=== PATIENT | male | born 1975 | race Caucasian/White ===

== ENCOUNTER 2019-01-12 05:30 | Inpatient (IN) | payer MEDICAID ==
[~2019-01-12 05:30] MED LIST: NITROGLYCERIN 50 MG/D5W (PMX) 0 ML
[2019-01-12] MEDS: HEPARIN 25000 UNITS/250 ML 250 ML IV (05:45)
[2019-01-12] MEDS: HEPARIN 1000 UNITS/ML 10 ML INJ IV (05:45)
[2019-01-12] MEDS: ASPIRIN 325 MG TAB PO (05:47)
[2019-01-12] MEDS: morphine 4 MG/ML VIAL IV (05:47)
[2019-01-12] MEDS: ONDANSETRON 4 MG INJ IV (05:48)
[2019-01-12 05:51] LABS: ADD MAN DIFF? NO
[2019-01-12 05:54] LABS: BASOPHIL # 0.1 10^3/ul (0.0-0.1); BASOPHILS % 0.8 % (0.0-2.0); EOSINOPHILS # 0.2 10^3/ul (0.0-0.5); EOSINOPHILS % 1.3 % (0.0-7.0); HEMATOCRIT 42.3 % (42.0-52.0); HEMOGLOBIN 15.1 g/dl (14.0-18.0); LYMPHOCYTES # 2.7 10^3/ul (0.8-2.9); MEAN CORPUSCULAR HEMOGLOBIN 32.7 pg (29.0-33.0); MEAN CORPUSCULAR HGB CONC 35.7 g/dl (32.0-37.0); MEAN CORPUSCULAR VOLUME 91.6 fl (82.0-101.0); MEAN PLATELET VOLUME 10.4 fl (7.4-10.4); MONOCYTES % 7.9 % (0.0-11.0); NEUTROPHIL # 8.4 10^3/ul (1.6-7.5); NEUTROPHILS % 67.8 % (39.0-77.0); PLATELET COUNT 240 10^3/UL (140-415); RED BLOOD COUNT 4.62 10^6/ul (4.70-6.10); RED CELL DISTRIBUTION WIDTH 11.9 % (11.5-14.5)
[2019-01-12 05:54] LABS: WHITE BLOOD COUNT 12.3 10^3/ul (4.8-10.8)
[2019-01-12 06:07] LABS: ANION GAP 10 (5-13); BLOOD UREA NITROGEN 8 mg/dl (7-20); CALCIUM 9.2 mg/dl (8.4-10.2); CARBON DIOXIDE 27 mmol/L (21-31); CHLORIDE 99 mmol/L (97-110); CREATININE 0.58 mg/dl (0.61-1.24); Estimated GFR > 60 mL/min (>60); GLUCOSE 256 mg/dl (70-220); POTASSIUM 3.9 mmol/L (3.5-5.1); SODIUM 136 mmol/L (135-144)
[2019-01-12 06:10] LABS: INR 0.95; PROTIME 12.8 Sec (11.9-14.9)
[2019-01-12 06:11] LABS: PARTIAL THROMBOPLASTIN TIME 27.9 Sec (23.0-35.0)
[2019-01-12] MEDS ORDERED: IODIXANOL LOCM 100 ML BTL (06:19)
[2019-01-12] MEDS ORDERED: HEPARIN 1000 UNITS/ML 10 ML INJ (06:19)
[2019-01-12] MEDS ORDERED: LIDOCAINE 1% (MDV) 20 ML INJ (06:19)
[2019-01-12] MEDS ORDERED: MIDAZOLAM 1 MG/ML 2 ML INJ (06:20)
[2019-01-12] MEDS ORDERED: NITROGLYCERIN (IC) 100 MCG/ML INJ (06:20)
[2019-01-12] MEDS ORDERED: FENTAnyl 50 MCG/ML VIAL (06:20)
[2019-01-12] MEDS ORDERED: VERAPAMIL 5 MG INJ (06:20)
[2019-01-12 06:37] LABS: TROPONIN-I 0.952 ng/ml (0.000-0.120)
[2019-01-12] MEDS ORDERED: TICAGRELOR 90 MG TABLET (06:54)
[2019-01-12] MEDS ORDERED: niCARdipine 25 MG INJ (06:58)
[2019-01-12] MEDS ORDERED: BIVALIRUDIN 250MG /NS 50 ML 50 ML IVPB (07:02)
[2019-01-12] MEDS ORDERED: AL HYDROX/MG HYDROX/SIMETH 30 ML CUP PO (07:30)
[2019-01-12] MEDS ORDERED: ONDANSETRON 4 MG INJ IV (07:30)
[2019-01-12] MEDS: BIVALIRUDIN 250MG /NS 50 ML 50 ML IVPB (08:33)
[2019-01-12] MEDS: SOD CHLORIDE 0.9% 1,000 ML IV ×2 (08:45→16:00)
[2019-01-12 11:37] LABS: CREATINE KINASE 2188 IU/L (23-200)
[2019-01-12 11:43] LABS: CK INDEX 7.5
[2019-01-12] MEDS ORDERED: GLUCAGON 1 MG INJ IM (12:30)
[2019-01-12] MEDS ORDERED: GLUCOSE GEL 15 GRAM TUBE PO ×2 (12:30)
[2019-01-12] MEDS ORDERED: GLUCOSE GEL 15 GRAM TUBE BUCCAL (12:30)
[2019-01-12] MEDS ORDERED: DEXTROSE 50% 50 ML SYRINGE IV ×2 (12:30)
[2019-01-12 12:31] LABS: HEMOGLOBIN A1C 9.7 % (0-5.9)
[2019-01-12 16:40] LABS: CREATINE KINASE 1427 IU/L (23-200)
[2019-01-12 16:53] LABS: CK INDEX 8.8
[2019-01-12] MEDS: INSULIN ASPART [NOVOLOG] 3 ML PEN SC ×3 (19:41→21:42)
[2019-01-12 20:06] LABS: POTASSIUM 3.9 mmol/L (3.5-5.1)
[2019-01-12] MEDS ORDERED: CLOPIDOGREL 300 MG TAB PO (21:00)
[2019-01-12] MEDS: ATORVASTATIN 80 MG TAB PO (21:35)
[2019-01-12] MEDS: TICAGRELOR 90 MG TABLET PO (21:40)
[2019-01-12] MEDS: INSULIN GLARGINE [LANTus] (100 UNITS/ML) SYG SC (21:41)
[2019-01-13] MEDS: ACCUCHECK AT 2AM (Patients on SS coverage) XX (02:10)
[2019-01-13] MEDS: SOD CHLORIDE 0.9% 1,000 ML IV ×3 (05:21→20:27)
[2019-01-13 05:36] LABS: ADD MAN DIFF? NO
[2019-01-13 05:38] LABS: WHITE BLOOD COUNT 11.2 10^3/ul (4.8-10.8)
[2019-01-13 05:38] LABS: BASOPHIL # 0.1 10^3/ul (0.0-0.1); BASOPHILS % 0.4 % (0.0-2.0); EOSINOPHILS # 0.2 10^3/ul (0.0-0.5); HEMATOCRIT 37.9 % (42.0-52.0); HEMOGLOBIN 13.1 g/dl (14.0-18.0); LYMPHOCYTES # 3.4 10^3/ul (0.8-2.9); MEAN CORPUSCULAR HEMOGLOBIN 32.6 pg (29.0-33.0); MEAN CORPUSCULAR HGB CONC 34.6 g/dl (32.0-37.0); MEAN CORPUSCULAR VOLUME 94.3 fl (82.0-101.0); MEAN PLATELET VOLUME 11.2 fl (7.4-10.4); MONOCYTE # 1.2 10^3/ul (0.3-0.9); MONOCYTES % 10.4 % (0.0-11.0); NEUTROPHIL # 6.3 10^3/ul (1.6-7.5); NEUTROPHILS % 56.8 % (39.0-77.0); PLATELET COUNT 188 10^3/UL (140-415); RED BLOOD COUNT 4.02 10^6/ul (4.70-6.10); RED CELL DISTRIBUTION WIDTH 12.4 % (11.5-14.5)
[2019-01-13 06:14] LABS: CREATINE KINASE 925 IU/L (23-200)
[2019-01-13 06:21] LABS: CHOLESTEROL 237 mg/dl (100-200)
[2019-01-13 06:21] LABS: CHOL/HDL RATIO 7.9 RATIO; HDL CHOLESTEROL 30 mg/dl (27-67); LDL CHOLESTEROL,CALCULATED 117 mg/dl; TRIGLYCERIDES 448 mg/dl (0-149)
[2019-01-13 06:49] LABS: MAGNESIUM 2.1 mg/dl (1.7-2.5)
[2019-01-13 06:54] LABS: ANION GAP 5 (5-13); BLOOD UREA NITROGEN 7 mg/dl (7-20); CALCIUM 8.8 mg/dl (8.4-10.2); CARBON DIOXIDE 26 mmol/L (21-31); CHLORIDE 107 mmol/L (97-110); CREATININE 0.57 mg/dl (0.61-1.24); Estimated GFR > 60 mL/min (>60); GLUCOSE 179 mg/dl (70-220); POTASSIUM 4.3 mmol/L (3.5-5.1); SODIUM 138 mmol/L (135-144)
[2019-01-13] MEDS: INSULIN ASPART [NOVOLOG] 3 ML PEN SC ×5 (07:35→20:29)
[2019-01-13] MEDS ORDERED: CLOPIDOGREL 75 MG TAB PO (09:00)
[2019-01-13] MEDS: ASPIRIN (EC) 81 MG TAB PO (09:42)
[2019-01-13] MEDS: CLOPIDOGREL 75 MG TAB PO (10:05)
[2019-01-13] MEDS: REPAGLINIDE 1 MG TAB PO ×2 (12:24→17:24)
[2019-01-13] MEDS: LOSARTAN 25 MG TAB PO (17:24)
[2019-01-13] MEDS: ATORVASTATIN 80 MG TAB PO (20:26)
[2019-01-14] MEDS: ACCUCHECK AT 2AM (Patients on SS coverage) XX (02:00)
[2019-01-14 06:24] LABS: ADD MAN DIFF? NO
[2019-01-14 06:31] LABS: WHITE BLOOD COUNT 10.6 10^3/ul (4.8-10.8)
[2019-01-14 06:31] LABS: BASOPHIL # 0.1 10^3/ul (0.0-0.1); BASOPHILS % 0.8 % (0.0-2.0); EOSINOPHILS # 0.3 10^3/ul (0.0-0.5); EOSINOPHILS % 3.2 % (0.0-7.0); HEMATOCRIT 35.8 % (42.0-52.0); HEMOGLOBIN 12.4 g/dl (14.0-18.0); LYMPHOCYTES # 3.6 10^3/ul (0.8-2.9); LYMPHOCYTES % 33.5 % (15.0-51.0); MEAN CORPUSCULAR HEMOGLOBIN 33.2 pg (29.0-33.0); MEAN CORPUSCULAR HGB CONC 34.6 g/dl (32.0-37.0); MEAN CORPUSCULAR VOLUME 95.7 fl (82.0-101.0); MEAN PLATELET VOLUME 11.6 fl (7.4-10.4); MONOCYTES % 9.7 % (0.0-11.0); NEUTROPHIL # 5.6 10^3/ul (1.6-7.5); NEUTROPHILS % 52.4 % (39.0-77.0); PLATELET COUNT 184 10^3/UL (140-415); RED BLOOD COUNT 3.74 10^6/ul (4.70-6.10); RED CELL DISTRIBUTION WIDTH 12.3 % (11.5-14.5)
[2019-01-14 07:06] LABS: ANION GAP 6 (5-13); Estimated GFR > 60 mL/min (>60)
[2019-01-14 07:07] LABS: BLOOD UREA NITROGEN 10 mg/dl (7-20); CALCIUM 8.8 mg/dl (8.4-10.2); CARBON DIOXIDE 25 mmol/L (21-31); CHLORIDE 108 mmol/L (97-110); CREATININE 0.64 mg/dl (0.61-1.24); GLUCOSE 165 mg/dl (70-220); MAGNESIUM 1.9 mg/dl (1.7-2.5); PHOSPHORUS 4.3 mg/dl (2.5-4.9); POTASSIUM 4.1 mmol/L (3.5-5.1); SODIUM 139 mmol/L (135-144)
[2019-01-14 07:22] LABS: CREATINE KINASE 341 IU/L (23-200)
[2019-01-14] MEDS: REPAGLINIDE 1 MG TAB PO ×3 (07:46→17:14)
[2019-01-14] MEDS: INSULIN ASPART [NOVOLOG] 3 ML PEN SC ×4 (07:50→20:07)
[2019-01-14] MEDS: LOSARTAN 25 MG TAB PO (09:00)
[2019-01-14] MEDS: ASPIRIN (EC) 81 MG TAB PO (09:07)
[2019-01-14] MEDS: CLOPIDOGREL 75 MG TAB PO (09:07)
[2019-01-14] MEDS: metFORMIN 500 MG TAB PO (17:15)
[2019-01-14] MEDS: ATORVASTATIN 80 MG TAB PO (20:06)
[2019-01-15] MEDS: ACCUCHECK AT 2AM (Patients on SS coverage) XX (02:00)
[2019-01-15 05:16] LABS: ADD MAN DIFF? NO
[2019-01-15 05:22] LABS: WHITE BLOOD COUNT 9.7 10^3/ul (4.8-10.8)
[2019-01-15 05:22] LABS: BASOPHIL # 0.1 10^3/ul (0.0-0.1); BASOPHILS % 0.8 % (0.0-2.0); EOSINOPHILS # 0.5 10^3/ul (0.0-0.5); EOSINOPHILS % 5.5 % (0.0-7.0); HEMATOCRIT 37.4 % (42.0-52.0); HEMOGLOBIN 12.7 g/dl (14.0-18.0); LYMPHOCYTES # 3.8 10^3/ul (0.8-2.9); LYMPHOCYTES % 38.7 % (15.0-51.0); MEAN CORPUSCULAR HEMOGLOBIN 32.5 pg (29.0-33.0); MEAN CORPUSCULAR VOLUME 95.7 fl (82.0-101.0); MEAN PLATELET VOLUME 11.2 fl (7.4-10.4); MONOCYTES % 10.6 % (0.0-11.0); NEUTROPHIL # 4.3 10^3/ul (1.6-7.5); NEUTROPHILS % 44.2 % (39.0-77.0); PLATELET COUNT 181 10^3/UL (140-415); RED BLOOD COUNT 3.91 10^6/ul (4.70-6.10); RED CELL DISTRIBUTION WIDTH 12.3 % (11.5-14.5)
[2019-01-15 05:44] LABS: ANION GAP 6 (5-13); BLOOD UREA NITROGEN 9 mg/dl (7-20); CALCIUM 9.1 mg/dl (8.4-10.2); CARBON DIOXIDE 27 mmol/L (21-31); CHLORIDE 108 mmol/L (97-110); CREATININE 0.62 mg/dl (0.61-1.24); Estimated GFR > 60 mL/min (>60); GLUCOSE 144 mg/dl (70-220); MAGNESIUM 1.9 mg/dl (1.7-2.5); PHOSPHORUS 4.6 mg/dl (2.5-4.9); SODIUM 141 mmol/L (135-144)
[2019-01-15 05:53] LABS: CREATINE KINASE 210 IU/L (23-200)
[2019-01-15] MEDS: REPAGLINIDE 1 MG TAB PO ×2 (06:14→12:13)
[2019-01-15] MEDS: INSULIN ASPART [NOVOLOG] 3 ML PEN SC ×4 (07:55→20:24)
[2019-01-15] MEDS: metFORMIN 500 MG TAB PO ×2 (07:55→17:39)
[2019-01-15] MEDS: ASPIRIN (EC) 81 MG TAB PO (08:24)
[2019-01-15] MEDS: CLOPIDOGREL 75 MG TAB PO (08:24)
[2019-01-15] MEDS: LOSARTAN 25 MG TAB PO (08:24)
[2019-01-15] MEDS: glipiZIDE 5 MG TAB PO (18:36)
[2019-01-15] MEDS: ATORVASTATIN 80 MG TAB PO (20:23)
[2019-01-16] MEDS: ACCUCHECK AT 2AM (Patients on SS coverage) XX (01:42)
[2019-01-16] MEDS: INSULIN ASPART [NOVOLOG] 3 ML PEN SC ×2 (08:00→12:00)
[2019-01-16] MEDS: metFORMIN 500 MG TAB PO (08:12)
[2019-01-16] MEDS: CLOPIDOGREL 75 MG TAB PO (08:12)
[2019-01-16] MEDS: glipiZIDE 5 MG TAB PO (08:12)
[2019-01-16] MEDS: ASPIRIN (EC) 81 MG TAB PO (08:12)
[2019-01-16] MEDS: LOSARTAN 25 MG TAB PO (08:14)
== END 2019-01-16 12:15 | disposition home or self-care (01) | DRG 247 ==
LOC: 6WM 01-13 18:27 → E/R 05:30 → PP2 01-15 19:12 → CCL 05:42 → SDS 06:41 → ICU 07:45 → CCL 07:20 → REC 07:21 → ICU 07:45
PROC: 027034Z Dilation of Coronary Artery, One Artery with Drug-eluting Intraluminal Device, Percutaneous Approach (ICD-10-PCS; principal; 2019-01-12)
PROC: 4A023N7 Measurement of Cardiac Sampling and Pressure, Left Heart, Percutaneous Approach (ICD-10-PCS; 2019-01-12)
PROC: B211YZZ Fluoroscopy of Multiple Coronary Arteries using Other Contrast (ICD-10-PCS; 2019-01-12)
PROC: B215YZZ Fluoroscopy of Left Heart using Other Contrast (ICD-10-PCS; 2019-01-12)
DX: I21.19 ST elevation (STEMI) myocardial infarction involving other coronary artery of inferior wall (principal); M62.82 Rhabdomyolysis; I25.10 Atherosclerotic heart disease of native coronary artery without angina pectoris; E11.9 Type 2 diabetes mellitus without complications; F17.200 Nicotine dependence, unspecified, uncomplicated
CPT/HCPCS: 36415; 71045; 80048; 80061; 82550; 82553; 82962; 83036; 83735; 84100; 84132; 84443; 84484; 85025; 85610; 85730; 93005; 93306; 93458; 96374; 96375; 99285-25